=== PATIENT | male | born 1965 | race American Indian/Alaskan Native ===

== ENCOUNTER 2016-06-19 19:40 | Emergency (ER) | payer MEDICAID ==
[~2016-06-19] VITALS: Ht 185.4 cm; Wt 105.2 kg
[~2016-06-19 19:40] MED LIST: CYCL-259 PO; DIPH25CA61 PO; HYDR-3240 PO; LORA1TAB PO; NAPR220T77 PO; OMEP20CA9 PO; OXYC-295 PO
[2016-06-19 20:56] LABS: ASPARTATE AMINO TRANSFERASE 83 U/L (15-37); BLOOD UREA NITROGEN 12 mg/dL (7-18)
[2016-06-19 22:10] VITALS: BP 114/75
== END 2016-06-19 22:14 | disposition home or self-care (01) ==
LOC: ED 22:13
DX: K64.8 Other hemorrhoids (principal); D69.6 Thrombocytopenia, unspecified; I10 Essential (primary) hypertension; B18.2 Chronic viral hepatitis C
CPT/HCPCS: 36415; 80053; 81003; 85025; 85610; 99284

== ENCOUNTER 2016-08-16 07:47 | Emergency (ER) | payer MEDICAID ==
[~2016-08-16] VITALS: Ht 185.4 cm; Wt 101.7 kg
[2016-08-16 07:48] VITALS: BP 150/95
[2016-08-16 09:55] LABS: ASPARTATE AMINO TRANSFERASE 93 U/L (15-37); BLOOD UREA NITROGEN 15 mg/dL (7-18)
== END 2016-08-16 10:49 | disposition home or self-care (01) ==
LOC: ED 10:30
DX: K62.5 Hemorrhage of anus and rectum (principal); K70.10 Alcoholic hepatitis without ascites; D68.9 Coagulation defect, unspecified; I10 Essential (primary) hypertension; Z90.49 Acquired absence of other specified parts of digestive tract
CPT/HCPCS: 36415; 80053; 83690; 85025; 85610; 99284

== ENCOUNTER → 2016-08-16 | Outpatient (CLI) | payer MEDICAID | END | disposition home or self-care (01) | LOC: EDSTATUS 08-02 09:00 → CFH 11:56 → EDSTATUS 17:00 | PROVIDERS: ATTEND Physician Assistant | DX: K74.60 Unspecified cirrhosis of liver (principal); R16.1 Splenomegaly, not elsewhere classified; B18.2 Chronic viral hepatitis C; R94.5 Abnormal results of liver function studies | CPT/HCPCS: 76700 ==

== ENCOUNTER → 2016-11-24 | Outpatient (CLI) | payer MEDICAID ==
[~2016-11-24] MED LIST changes: +GADOXETATE DISODIUM 2.5 MMOL/10 ML ONE
== END | disposition home or self-care (01) ==
LOC: RAD 13:47
PROVIDERS: ATTEND Physician Assistant
DX: K74.69 Other cirrhosis of liver (principal); B18.2 Chronic viral hepatitis C; R16.0 Hepatomegaly, not elsewhere classified; R77.2 Abnormality of alphafetoprotein
CPT/HCPCS: 74183; A9581

== ENCOUNTER → 2017-06-14 | Outpatient (CLI) | payer MEDICAID ==
[~2017-06-14] MED LIST changes: -GADOXETATE DISODIUM 2.5 MMOL/10 ML ONE
== END | disposition home or self-care (01) ==
LOC: CFH 08:36
PROVIDERS: ATTEND Physician Assistant
DX: K74.69 Other cirrhosis of liver (principal); R16.1 Splenomegaly, not elsewhere classified; Z90.49 Acquired absence of other specified parts of digestive tract
CPT/HCPCS: 76705